=== PATIENT | female | born 1940 | race Two or more races ===

== ENCOUNTER 2025-08-21 14:39 | Emergency (ER) | payer OTHER ==
[~2025-08-21] VITALS: Ht 147.3 cm; Wt 41.7 kg
[2025-08-21] MEDS ORDERED: VISTARIL50 MG/ML PO (16:00)
[2025-08-21] MEDS ORDERED: ATORVASTATIN CA40 MG PO (16:01)
[2025-08-21] MEDS ORDERED: SEROQUEL25 MG PO (16:01)
[2025-08-21] MEDS ORDERED: AMLODIPINE-OLM1 EAC2 PO (16:01)
[2025-08-21] MEDS ORDERED: MELATONIN10 MG PO (16:02)
[2025-08-21] MEDS ORDERED: LOSARTAN POTAS100 MG PO (16:02)
[2025-08-21] MEDS ORDERED: METFORMIN HCL500 M4 PO (16:02)
[2025-08-21] MEDS ORDERED: MEMANTINE HCL E28 MG PO (16:02)
[2025-08-21] MEDS ORDERED: NORVASC2.5 M1 PO (16:03)
[2025-08-21] MEDS ORDERED: MAGNESIUM250 M1 PO (16:03)
[2025-08-21] MEDS ORDERED: QUETIAPINE FUM400 M1 PO (16:03)
[2025-08-21 16:06] VITALS: BP 138/76; O2SAT 100
[2025-08-21 17:00] LABS: BASO % 0.9 % (0.1-1.2); EOS # 0.61 (0.04-0.54); EOS % 11.1 % (0.7-7.0); LYMPH # 1.19 (1.18-3.74); LYMPH % 21.6 % (19.3-53.1); MEAN PLATELET VOLUME 11.20 fl (9.4-12.4); MONO # 0.43 (0.24-0.82); MONO % 7.8 % (4.7-12.5); NEUT # 3.24 (1.56-6.13); NEUT % 58.6 % (34.0-71.1); RED CELL DISTRIBUTION WIDTH 15.1 % (11.6-14.4)
[2025-08-21 17:06] LABS: ERYTHROCYTE SEDIMENTATION RATE 24 mm/hr (0-30)
[2025-08-21 17:39] LABS: ALT/SGPT 31 U/L (12-78); AST/SGOT 22 U/L (15-37); BILIRUBIN TOTAL 0.32 mg/dL (0.3-1.2); BUN CREA RATIO 29 (7.0-25.0); CREATININE SERUM 1.06 mg/dL (0.55-1.02); GFR 49.51; GLOBULINA 4.5 G/DL (2.4-3.5); GLUCOSE FASTING 163 mg/dL (65-100); OSMOLALITY SERUM 293 MOSM/KG (275-295)
[2025-08-21 18:02] LABS: URINE APPEARANCE Clear; URINE BILIRRUBIN Small (NEGATIVE); URINE BLOOD Negative; URINE COLOR Dark Yellow; URINE GLUCOSE Negative (NEGATIVE); URINE KETONE Trace (NEGATIVE); URINE LEUKOCYTE Moderate; URINE NITRATE Negative; URINE PROTEIN 30 (NEGATIVE); URINE UROBILINOGEN 1.0 E.U./dl
[2025-08-21 18:04] LABS: URINE BACTERIA 92.4 uL (0.0-1933); URINE CAST 13.34 uL (0.0-1.40); URINE EPITHELIAL CELLS 23.8 uL (0.0-38.8); URINE RBC 37.5 uL (0.0-20.8); URINE WBC 105.9 uL (0.0-23.2)
[2025-08-21 18:32] LABS: URINE CRYSTALS FEW /HPF
[2025-08-21 18:33] LABS: URINE MUCUS SCANT
[2025-08-21 18:34] LABS: TYPE CELLS SQUAMOUS
[2025-08-21] MEDS ORDERED: POTASSIUM CHLORIDE 10 MEQ CAPSULE PO STA (21:54)
== END 2025-08-22 01:06 | disposition home or self-care (01) ==
LOC: ER 14:40
PROVIDERS: Physician Assistant Medical
DX: E87.6 Hypokalemia (principal); M62.838 Other muscle spasm; I10 Essential (primary) hypertension; H40.89 Other specified glaucoma; J44.9 Chronic obstructive pulmonary disease, unspecified; F20.89 Other schizophrenia; F01.50 Vascular dementia, unspecified severity, without behavioral disturbance, psychotic disturbance, mood disturbance, and anxiety; E11.9 Type 2 diabetes mellitus without complications; Z79.84 Long term (current) use of oral hypoglycemic drugs